=== PATIENT | female | born 1995 | race Caucasian/White ===

== ENCOUNTER 2016-05-27 08:55 | Emergency (ER) | payer MEDICAID, OTHER ==
[2016-05-27 09:16] VITALS: BP 115/73
--- NOTE | 2016-05-27 10:32 | UC ---
Ear Complaint HPI - HPI Summary HPI Summary: SEVERAL DAYS OF LEFT EAR PAIN AND SLIGHTLY MUTED HEARING. HAS HAD SOME ASSOCIATED INTERMITTENT NAUSEA. THREW UP ONE TIME. NO FEVER. - History of Current Complaint Chief Complaint: UCGeneralIllness Stated Complaint: EAR PAIN NAUSEA DIARRHEA Time Seen by Provider: 05/27/16 10:19 Hx Obtained From: Patient Hx Last Menstrual Period: 05/15/16 Onset/Duration: Gradual Onset, Lasting Days, Still Present Severity Initially: Moderate Severity Currently: Moderate Pain Intensity: 3 Pain Scale Used: 0-10 Numeric Aggravating Factors: Nothing Alleviating Factors: Nothing Associated Signs/Symptoms: Positive: Hearing Loss. Negative: Foreign Body Sensation, Trauma to Ear - Allergies/Home Medications Allergies/Adverse Reactions: Allergies Allergy/AdvReac Type Severity Reaction Status Date / Time No Known Allergies Allergy Verified 05/27/16 09:05 Home Medications: Home Medications buPROPion SR TAB* [Wellbutrin SR TAB*] 1 tab DAILY 05/27/16 [History Confirmed 05/27/16] PMH/Surg Hx/FS Hx/Imm Hx - Additional Past Medical History Additional PMH: SJOGRENS Endocrine History Of: Denies: Diabetes Cardiovascular History Of: Reports: Cardiac Disorders - Heart palpitations- on med Denies: Hypertension, Pacemaker/ICD, Congestive Heart Failure Respiratory History Of: Denies: Asthma GI/ History Of: Denies: Renal Disease Neurological History Of: Reports: Migraine Psychological History Of: Reports: Anxiety, Depression - Surgical History Surgical History: Yes Surgery Procedure, Year, and Place: WISDOM TEETH - Family History Known Family History: Positive: Hypertension - Social History Alcohol Use: None Substance Use Type: None Smoking Status (MU): Never Smoked Tobacco Review of Systems Constitutional: Negative ENT: Ear Ache Respiratory: Negative Cardiovascular: Negative Gastrointestinal: Abdominal Pain, Vomiting All Other Systems Reviewed And Are Negative: Yes Physical Exam Triage Information Reviewed: Yes Appearance: Well-Appearing, No Pain Distress, Well-Nourished Vital Signs: Initial Vital Signs Temp 98.5 F 05/27/16 09:06 Pulse 100 05/27/16 09:06 Resp 18 05/27/16 09:06 BP 115/73 05/27/16 09:06 Pulse Ox 100 05/27/16 09:06 Vital Signs Reviewed: Yes Eyes: Positive: Conjunctiva Clear ENT: Positive: Hearing grossly normal, Pharynx normal, TMs normal Neck: Positive: Supple, Nontender, No Lymphadenopathy Respiratory Exam: Normal Cardiovascular Exam: Normal Abdomen Description: Positive: Soft Musculoskeletal: Positive: No Edema Neurological: Positive: Alert Psychological: Positive: Age Appropriate Behavior Skin: Negative: rashes Ear Complaint Course/Dx - Course Course Of Treatment: PT FEELS IMPROVED AFTER LEFT EAR IRRIGATION BY RN. CERUMEN EXPELLED. TMS CLEAR. - Differential Dx/Diagnosis Provider Diagnoses: LEFT SIDED CERUMEN IMPACTION Discharge - Discharge Plan Condition: Stable Disposition: HOME Patient Education Materials: Cerumen Impaction (ED) Referrals: Aminata Ferraro MD [Medical Doctor] - Additional Instructions: SEEK FOLLOW-UP IF YOUR SYMPTOMS PERSIST OR DO NOT IMPROVE.
== END 2016-05-27 11:00 | disposition home or self-care (01) ==
LOC: UCEAST 08:55
DX: H61.22 Impacted cerumen, left ear (principal)
CPT/HCPCS: 99213; G0463

== ENCOUNTER 2020-10-04 15:41 | Observation (INO) ==
[2020-10-04 16:40] LABS: ABS Lymphocytes 1.2 10^3/ul (1.0-4.8); ABS Monocytes 0.4 10^3/ul (0-0.8); ABS Neutrophils 4.9 10^3/ul (1.5-7.7); Eosinophil % 0.2 %; Hematocrit 41 % (35-47); Hemoglobin 14.2 g/dL (12.0-16.0); Mean Corpuscular HGB Conc 35 g/dL (31-36); Mean Corpuscular Hemoglobin 32 pg (27-31); Mean Corpuscular Volume 93 fL (80-97); Mean Platelet Volume 7.6 fL (7.4-10.4); Nucleated Red Blood Cells % 0.1; Platelet Count 320 10^3/uL (150-450); Red Blood Count 4.39 10^6 /uL (3.70-4.87); Red Cell Distribution Width 13 % (10-15); White Blood Count 6.5 10^3/uL (3.5-10.8)
[2020-10-04 16:57] LABS: ALT 71 U/L (7-52); AST 36 U/L (13-39); Albumin 4.9 g/dL (3.2-5.2); Albumin/Globulin Ratio 1.5 (1-3); Alkaline Phosphatase 43 U/L (35-149); Anion Gap 9 mmol/L (2-11); Blood Urea Nitrogen 16 mg/dL (6-24); C Reactive Protein 1.04 mg/L (<8.01); CO2 Carbon Dioxide 27 mmol/L (22-32); Calcium 9.9 mg/dL (8.6-10.3); Chloride 100 mmol/L (101-111); EGFR African American 114.8 (>60); EGFR Non-African American 94.9 (>60); Globulin 3.3 g/dL (2-4); Glucose 106 mg/dL (70-100); Lipase < 10 U/L (11.0-82.0); Sodium 136 mmol/L (135-145); Total Protein 8.2 g/dL (6.4-8.9)
[2020-10-04 17:03] LABS: HCG Pregnancy < 0.60 mIU/mL
[2020-10-04] MEDS ORDERED: NS 0.9% 1000 ml BAG 1,000 ML IV ONE (17:18)
[2020-10-04] MEDS ORDERED: Ondansetron 4 mg VIAL 2 MG/ML 2 ml VIAL IV ONE (17:18)
[2020-10-04 19:03] LABS: Urine Appearance Cloudy; Urine Bilirubin Negative (Negative); Urine Blood Negative (Negative); Urine Color Yellow; Urine Glucose Negative (Negative); Urine Ketones Negative (Negative); Urine Nitrite Negative (Negative); Urine Protein Negative (Negative); Urine Specific Gravity 1.008 (1.002-1.030); Urine Urobilinogen Negative (Negative)
[2020-10-04] MEDS ORDERED: HYDROmorphone 0.5 MG/0.5 ML SYRINGE IV SLOW PU PRN (19:15)
[2020-10-04 19:30] LABS: Urine Bacteria 1+ (Absent); Urine Red Blood Cell Trace(0-2/hpf) (Absent); Urine Squamous Epithelial Cell Present (Absent); Urine White Blood Cell Trace(0-5/hpf) (Absent)
[2020-10-04] MEDS: Lactated Ringers 1000 ml BAG 1,000 ML IV SCH (20:37)
[2020-10-04] MEDS ORDERED: Pantoprazole VIAL 40 MG VIAL IV SCH (23:00)
[2020-10-04] MEDS: Ondansetron 4 mg VIAL 2 MG/ML 2 ml VIAL IV PRN (23:18)
[2020-10-05] MEDS ORDERED: fentaNYL 250 mcg/5 ml 50 MCG/ML 5 ml VIAL (250 MCG) IV SCH
[2020-10-05] MEDS ORDERED: Midazolam 2 mg/2 ml VIAL 1 mg/ml 2 ml VIAL (2 mg) IV SLOW PU SCH
[2020-10-05] MEDS ORDERED: Dexamethasone IV 4 MG/ML VIAL 1 ml VIAL IV SLOW PU SCH
[2020-10-05] MEDS ORDERED: Phenylephrine 40 mcg/mL 10mL (400mcg) SYRINGE IV SCH ×2
[2020-10-05] MEDS ORDERED: Lidocaine 2% PF 5 ML VIAL INJ SCH
[2020-10-05] MEDS ORDERED: Propofol 10 MG/ML 20 ML BTL IV SCH
[2020-10-05] MEDS ORDERED: Rocuronium 50 mg VIAL 10 mg/ml 5 ml VIAL (50 mg) IV SCH ×2
[2020-10-05] MEDS ORDERED: Ondansetron 4 mg VIAL 2 MG/ML 2 ml VIAL IV SCH
[2020-10-05] MEDS ORDERED: HYDROmorphone 1 MG/1 ML SYRINGE IV SCH
[2020-10-05] MEDS: Lactated Ringers 1000 ml BAG 1,000 ML IV SCH (06:06)
[2020-10-05] MEDS: Pantoprazole VIAL 40 MG VIAL IV SCH (08:03)
[2020-10-05] MEDS ORDERED: ceFAZolin 2 GM PREMIX 2 GM/50 ML BAG IVPB ONE (12:58)
[2020-10-05] MEDS ORDERED: Vancomycin 1,000 MG VIAL ONE (13:03)
[2020-10-05] MEDS ORDERED: ceFAZolin 2 GM PREMIX 2 GM/50 ML BAG ONE (14:39)
[2020-10-05] MEDS ORDERED: Bupivacaine 0.5% SDV PF 30ML VIAL ONE (15:12)
[2020-10-05] MEDS ORDERED: diPHENhydraMINE IV 50 MG/ML 1 ml VIAL (BENADRYL) IV PRN (17:09)
[2020-10-05] MEDS ORDERED: Naloxone 0.4 mg VIAL 0.4 mg/ml 1 ml VIAL IV PRN (17:09)
[2020-10-05] MEDS ORDERED: fentaNYL 100 mcg/2 ml 50 MCG/ML VIAL ONE (17:44)
[2020-10-05] MEDS ORDERED: diPHENhydraMINE IV 50 MG/ML 1 ml VIAL (BENADRYL) ONE (17:44)
[2020-10-05] MEDS: fentaNYL 100 mcg/2 ml 50 MCG/ML VIAL IV PRN ×2 (17:45→18:01)
[2020-10-05] MEDS: Ondansetron 4 mg VIAL 2 MG/ML 2 ml VIAL IV PRN (19:32)
[2020-10-06] MEDS: Ondansetron 4 mg VIAL 2 MG/ML 2 ml VIAL IV PRN (00:38)
[2020-10-06 07:36] VITALS: BP 107/62
[2020-10-06] MEDS: Pantoprazole VIAL 40 MG VIAL IV SCH (08:47)
[2020-10-08] MEDS ORDERED: Scopolamine PATCH Remove NOTE PATCH OFF SCH (16:00)
== END 2020-10-06 10:45 | disposition home or self-care (01) ==
LOC: SSU 15:41 → ED 15:41 → SSU 19:55
PROVIDERS: ADMIT Surgery Surgical Critical Care; ATTEND Surgery Surgical Critical Care

== ENCOUNTER 2023-09-19 12:22 | Inpatient (IN) ==
[2023-09-19 12:48] LABS: ABS Basophils 0.1 10^3/uL (0.0-0.1); ABS Eosinophils 0.1 10^3/uL (0.0-0.5); ABS Lymphocytes 2.6 10^3/uL (1.0-4.8); ABS Monocytes 0.8 10^3/uL (0.0-0.9); ABS Neutrophils 4.3 10^3/uL (1.5-7.6); ABS Nucleated RBC 0.01 10^3/ul; Eosinophil % 1.3 %; Hematocrit 41.4 % (35-45); Hemoglobin 13.8 g/dL (11.5-14.3); Lymphocyte % 32.7 %; Mean Corpuscular Hemoglobin 29.1 pg (27-33); Mean Corpuscular Hgb Conc 33.3 g/dL (31-36); Mean Corpuscular Volume 87.2 fL (80-97); Mean Platelet Volume 8.3 fL (7.5-11.2); Nucleated Red Blood Cells % 0.2 %/100WBC (0.0-0.8); Platelet Count 320 10^3/uL (150-450); Red Blood Count 4.75 10^6/uL (3.63-4.92); Red Cell Distribution Width 18.3 % (12-17); White Blood Count 7.8 10^3/uL (3.8-11.8)
[2023-09-19 12:56] LABS: INR 1.02 (0.83-1.13)
[2023-09-19 13:13] LABS: High Sens Troponin Baseline < 3 pg/mL (<15)
[2023-09-19 13:19] LABS: ALT 23 U/L (7-52); AST 22 U/L (13-39); Albumin 4.9 g/dL (3.2-5.2); Albumin/Globulin Ratio 1.9 (1-3); Alkaline Phosphatase 39 U/L (35-149); Anion Gap 11 mmol/L (2-16); Blood Urea Nitrogen 21 mg/dL (6-24); CO2 Carbon Dioxide 28 mmol/L (22-32); Calcium 9.9 mg/dL (8.6-10.3); Chloride 99 mmol/L (101-111); Creatinine, Serum 0.87 mg/dL (0.51-0.95); Globulin 2.6 g/dL (2-4); Glucose 93 mg/dL (70-100); Potassium 4.4 mmol/L (3.5-5.0); Sodium 138 mmol/L (135-145); Total Bilirubin 0.3 mg/dL (0.2-1.0); Total Protein 7.5 g/dL (6.4-8.9); eGFR CKD-EPI 92.4 (>60)
[2023-09-19 14:16] LABS: High Sensitivity Troponin 1 Hr < 3 pg/mL (<15)
[2023-09-19] MEDS: Ondansetron ODT 4 mg TAB 4 MG TAB SL PRN (19:34)
[2023-09-19 19:58] LABS: Urine Appearance Turbid; Urine Bilirubin Negative (Negative); Urine Blood Negative (Negative); Urine Color Light-Yellow; Urine Glucose Negative (Negative); Urine Ketones Negative (Negative); Urine Nitrite Negative (Negative); Urine Protein Negative (Negative); Urine Specific Gravity 1.025 (1.002-1.030); Urine Urobilinogen Negative (Negative); Urine pH 6.5 (5.0-8.0)
[2023-09-20 07:24] LABS: Magnesium 2.1 mg/dL (1.9-2.7)
[2023-09-20] MEDS ORDERED: Sulfur Hexaflouride MICROSPHR 25 MG VIAL ONE ×2 (08:12→08:18)
[2023-09-20] MEDS: DULoxetine DR 30 mg CAP PO SCH (08:57)
[2023-09-20] MEDS: Lactated Ringers 1000 ml BAG 1,000 ML IV SCH (18:00)
[2023-09-20 19:00] LABS: C Reactive Protein < 1.00 mg/L (<8.01)
[2023-09-20] MEDS: Acetaminophen IV 1 GM/100ML 1,000 MG/100 ML BAG IV ONE (22:23)
[2023-09-21 06:11] LABS: ABS Eosinophils 0.2 10^3/uL (0.0-0.5); ABS Lymphocytes 2.2 10^3/uL (1.0-4.8); ABS Monocytes 0.6 10^3/uL (0.0-0.9); ABS Neutrophils 2.5 10^3/uL (1.5-7.6); Eosinophil % 2.8 %; Hematocrit 39.4 % (35-45); Hemoglobin 13.1 g/dL (11.5-14.3); Lymphocyte % 39.9 %; Mean Corpuscular Hemoglobin 29.3 pg (27-33); Mean Corpuscular Hgb Conc 33.3 g/dL (31-36); Mean Corpuscular Volume 87.9 fL (80-97); Mean Platelet Volume 8.2 fL (7.5-11.2); Nucleated Red Blood Cells % 0.1 %/100WBC (0.0-0.8); Platelet Count 269 10^3/uL (150-450); Red Blood Count 4.48 10^6/uL (3.63-4.92); Red Cell Distribution Width 17.7 % (12-17); White Blood Count 5.5 10^3/uL (3.8-11.8)
[2023-09-21 06:36] LABS: Calcium 9.3 mg/dL (8.6-10.3); Creatinine, Serum 0.73 mg/dL (0.51-0.95); Magnesium 2.1 mg/dL (1.9-2.7); Potassium 4.2 mmol/L (3.5-5.0); eGFR CKD-EPI 114.1 (>60)
[2023-09-22 05:38] LABS: ABS Eosinophils 0.2 10^3/uL (0.0-0.5); ABS Lymphocytes 2.6 10^3/uL (1.0-4.8); ABS Monocytes 0.8 10^3/uL (0.0-0.9); ABS Neutrophils 4.4 10^3/uL (1.5-7.6); Eosinophil % 2.5 %; Hematocrit 38.2 % (35-45); Hemoglobin 12.8 g/dL (11.5-14.3); Mean Corpuscular Hemoglobin 29.2 pg (27-33); Mean Corpuscular Hgb Conc 33.5 g/dL (31-36); Mean Corpuscular Volume 87.1 fL (80-97); Mean Platelet Volume 8.2 fL (7.5-11.2); Platelet Count 310 10^3/uL (150-450); Red Blood Count 4.39 10^6/uL (3.63-4.92); Red Cell Distribution Width 17.8 % (12-17); White Blood Count 8.2 10^3/uL (3.8-11.8)
[2023-09-22 06:02] LABS: Calcium 9.4 mg/dL (8.6-10.3); Creatinine, Serum 0.83 mg/dL (0.51-0.95); Magnesium 1.9 mg/dL (1.9-2.7); Potassium 3.9 mmol/L (3.5-5.0); eGFR CKD-EPI 97.8 (>60)
[2023-09-22] MEDS: Potassium Chlor 20 meq TAB.ER PO ONE (09:31)
[2023-09-22] MEDS: Magnesium Sulfate IV 1GM/100ML 1 GM/100 ML BAG IV ONE (09:32)
[2023-09-23 13:59] VITALS: BP 88/61
== END 2023-09-23 15:28 | disposition home or self-care (01) | DRG 204 ==
LOC: EDHOLD 12:22 → ED 12:22 → SUATTDRO 20:59 → MEDTELE 09-20 14:10
PROVIDERS: ADMIT Student in an Organized Health Care Education/Training Program; ATTEND Internal Medicine